=== PATIENT | female | born 1950 | race Caucasian/White ===

== ENCOUNTER 2024-05-28 15:53 | Emergency (ER) | payer OTHER ==
[~2024-05-28] VITALS: Ht 167.6 cm; Wt 81.8 kg
--- NOTE | 2024-05-28 16:03 | ED.PDOC ---
Altered Mental Status HPI Comments 73 y.o female with PMH of AFIB, presents to the ED via EMS for a chief complaint of dizziness. 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 Patient assisted herself to a chair and placed her head to her knees. Patient's friend called 911. EMS reports on scene, patient was hypotensive to the 80's systolic and bradycardic in the low 40s. Patient was placed supine on a gurney, imroving her BP to 124/80's, however she remained bradycardiac around 53 HR. Patient received IV fluids and patient states she is no longer feeling dizzy but is complaining of a mild discomfort to the posterior aspect of her neck. No chest pain, SOB, vision changes, headache, focal weakness or vomiting reported. Time Seen by MD: 15:51 Reviewed Notes: Nurses Notes, Gasoline Pump Installer Notes, Medications, Allergies Allergies: Coded Allergies: Codeine (Verified Allergy, Unknown, 05/28/24) Information Source: Patient, Emergency Med Personnel Mode of Arrival: EMS Severity: Moderate Timing: Hours Duration: Since onset Prehospital treatment: 12 Lead EKG, Softball Coach, IVF Associated Signs and Symptoms: Other Past Medical History PAST MEDICAL HISTORY: AFIB, HTN Surgical History: Denies all surgeries CAREER RESOURCE TECHNICIAN History: No Pertinent CAREER RESOURCE TECHNICIAN History Family History Family History: Reviewed,noncontributory to illness Social History Smoker: Non-Smoker Alcohol: Denies ETOH Use Drugs: Denies Drug Use Lives In: Home Constitutional: denies: chills, diaphoresis, fatigue, fever, malaise, sweats, weakness, others EENTM: denies: blurred vision, double vision, ear bleeding, ear discharge, ear drainage, ear pain, ear ringing, eye pain, eye redness, hearing loss, mouth pain, mouth swelling, nasal discharge, nose bleeding, nose congestion, nose pain, photophobia, tearing, throat pain, throat swelling, voice changes, others Respiratory: denies: cough, hemoptysis, orthopnea, SOB at rest, shortness of breath, SOB with excertion, stridor, wheezing, others Cardiovascular: reports: lightheadedness; denies: chest pain, dizzy spells, diaphoresis, Dyspnea on exertion, edema, irregular heart beat, left arm pain, palpitations, PND, syncope, others Gastrointestinal: denies: abdomen distended, abdominal pain, blood streaked bowels, constipated, diarrhea, dysphagia, difficulty swallowing, hematemesis, melena, nausea, poor appetite, poor fluid intake, rectal bleeding, rectal pain, vomiting, others Genitourinary: denies: abnormal vagina bleeding, burning, dyspareunia, dysuria, flank pain, frequency, hematuria, incontinence, pain, , vagina discharge, urgency, others Neurological: reports: dizziness; denies: fainting, headache, left sided numb ness, left sided weakness, numbness, paresthesia, pre-existing deficit, right sided numbness, right sided weakness, seizure, speech problems, tingling, tremors, weakness, others Musculoskeletal: reports: neck pain; denies: back pain, gout, joint pain, joint swelling, muscle pain, muscle stiffness, others Integumetry: denies: bruises, change in color, change in hair/nails, dryness, laceration, lesions, lumps, rash, wounds, others Allergic/Immunocompromised: denies: Difficulty Healing, Frequent Infections, Hives, Itching, others Hematologic/Lymphatic: denies: anemia, blood clots, easy bleeding, easy bruising, swollen glands, others Endocrine: denies: excessive hunger, excessive sweating, excessive thirst, excessive urination, flushing, intolerance to cold, intolerance to heat, unexplained weight gain, unexplained weight loss, others Psychiatric: denies: anxiety, bipolar disorder, depression, hopeless, panic disorder, schizophrenia, sleepless, suicidal, others All Other Systems: Reviewed and Negative Physical Exam General Appearance: No Apparent Distress HEENT: Normal ENT Inspection Neck: Full Range of Motion, Non-Tender, Normal Inspection, Supple Respiratory: Lungs Clear, No Accessory Muscle Use, No Respiratory Distress, Normal Breath Sounds Cardiovascular: Bradycardia, No Edema, No JVD Breast Exam: Deferred Gastrointestinal: Non Tender, Soft Genitalia: Deferred Pelvic: Deferred Rectal: Deferred Extremities: Normal inspection, Normal range of motion, Non-tender, No pedal edema Neurologic: Alert, No Motor Deficits, Normal Affect, Normal Mood, No Sensory Deficits Cerebellar Function: NOT DONE Reflexes: NOT DONE Skin: Dry, Normal Color, Warm Lymphatic: NOT DONE EKG EKG : Comments EKG sinus bradycardia, rate 55, normal ND and QRS intervals, QTC 499, left axis deviation, old inferior infarct, nonspecific T change. Was a procedure done? Was a procedure done?: No Differential Diagnosis (ALOC) Differential Diagnosis: Dehydration, Hypoglycemia, Encephalopathy, Closed Head Injury, CVA, Mass Lesion, SAH, Heart Failure, Other (TIA) Other Differential Diagnosis Bradycardia, orthostasis, hypotension X-Ray, Labs, Meds, VS Vital Signs Date Time Temp Pulse Resp B/P (MAP) Pulse Ox O2 Delivery O2 Flow Rate FiO2 05/28/24 17:08 98.2 58 16 140/62 (88) 96 98.2 05/28/24 17:08 58 16 96 Room Air* 0 21 05/28/24 17:06 75 05/28/24 16:13 97.5 58 18 129/54 (79) 98 05/28/24 15:58 55 Lab Test 05/28/24 16:54 05/28/24 16:09 Range/Units Troponin I High Sensitivity 4 3 L </=34 ng/L White Blood Count 5.8 4.4-10.8 10^3/uL Red Blood Count 4.29 4.0-5.20 10^6/uL Hemoglobin 13.3 12.2-16.2 g/dL Hematocrit 38.5 36.0-46.0 % Mean Corpuscular Volume 89.7 80.0-100.0 fL Mean Corpuscular Hemoglobin 31.0 28.0-32.0 pg Mean Corpuscular Hemoglobin Concent 34.6 32.0-36.0 g/dL Red Cell Distribution Width 12.9 11.8-14.3 % Platelet Count 223 140-450 10^3/uL Mean Platelet Volume 8.8 6.9-10.8 fL Neutrophils (%) (Auto) 60.1 37.0-80.0 % Lymphocytes (%) (Auto) 31.2 10.0-50.0 % Monocytes (%) (Auto) 6.9 0.0-12.0 % Eosinophils (%) (Auto) 1.0 0.0-7.0 % Basophils (%) (Auto) 0.8 0.0-2.0 % Neutrophils # (Auto) 3.5 1.6-8.6 10 ^3/uL Lymphocytes # (Auto) 1.8 0.4-5.4 10 ^3/uL Monocytes # (Auto) 0.4 0-1.3 10 ^3/uL Eosinophils # (Auto) 0.1 0-0.8 10 ^3/uL Basophils # (Auto) 0 0-0.2 10 ^3/uL Nucleated Red Blood Cells 0.1 % Sodium Level 145 136-145 mmol/L Potassium Level 3.9 3.5-5.1 mmol/L Chloride Level 112 H 98-107 mmol/L Carbon Dioxide Level 23 20-31 mmol/L Anion Gap 10 5-15 Blood Urea Nitrogen 18 9-23 mg/dL Creatinine 1.40 H 0.550-1.02 mg/dL Glomerular Filtration Rate Calc 39 >90 mL/min BUN/Creatinine Ratio 12.9 10.0-20.0 Serum Glucose 134 H 74-106 mg/dL Calcium Level 9.4 8.7-10.4 mg/dL B-Type Natriuretic Peptide 41.64 0-100 pg/mL PROCEDURE(s): HWOCT - HEAD WITHOUT CONTRAST REASON: NEAR SYNCOPE ORDER NUMBER(s): [id number], ACCESSION NUMBER(s): [id number] EXAM: CT HEAD WITHOUT CONTRAST INDICATION: NEAR SYNCOPE TECHNIQUE: CT of the head without intravenous contrast. Radiation Dose Information: CT Dose: CTDI volume is 50.39 mGy. Dose-length product is 908.71 mGy*cm The dose indicators for CT are the volume Computed Tomography (CT) Dose Index (CTDIvol) and the Dose Length Product (DLP), and are measured in units of mGy and mGy-cm, respectively. These indicators are not patient dose, but values generated from the CT scanner acquisition factors. The report includes radiation exposure data for exposures received during this examination. COMPARISON: None FINDINGS: There is no evidence of acute intracranial hemorrhage, extra-axial collection, mass effect, midline shift, herniation or hydrocephalus. Multiple small old lacunar infarcts left frontal lobe . The ventricles, sulci and cisterns are age appropriate. The henriquez-white differentiation is intact. Patchy periventricular and subcortical white matter hypoattenuation is nonspecific but may be related to small vessel ischemic disease. The visualized paranasal sinuses and mastoid air cells are clear. The surrounding soft tissues and osseous structures are unremarkable. IMPRESSION: 1. No acute intracranial hemorrhage. 2. Small focal lacunar infarcts left frontal lobe in the periventricular area. 3. No areas of territorial ischemia. EDURE(s): CXRP - CHEST PORTABLE REASON: NEAR SYNCOPE; BRADYCARDIA ORDER NUMBER(s): [id number], ACCESSION NUMBER(s): [id number] CHEST RADIOGRAPH Indication:NEAR SYNCOPE; BRADYCARDIA Technique: Single frontal view of the chest was obtained COMPARISON: None FINDINGS: Lines and Tubes: None Lungs: Clear Pleura: No effusion. No pneumothorax. Cardiomediastinal contours: Unremarkable Bones: Unremarkable IMPRESSION: No acute disease. X-Ray, Labs, Meds, VS Comment 73-year-old female with a history of hypertension and AFib presenting after a n ear syncopal episode, with a finding of initial hypotension and bradycardia Vitals remarkable for heart rate 55 Exam remarkable for bradycardia CBC, basic metabolic panel, BNP and 1st troponin unremarkable for any abnormality of acute significance EKG sinus bradycardia, rate 55, normal ND and QRS intervals, QTC 499, left axis deviation, old inferior infarct, nonspecific T change. Chest x-ray unremarkable Head CT: IMPRESSION: 1. No acute intracranial hemorrhage. 2. Small focal lacunar infarcts left frontal lobe in the periventricular area. 3. No areas of territorial ischemia. Patient was not feeling lightheaded/presyncopal in the ED and was not in any discomfort, so was placed on continuous cardiac and pulse oximetry monitoring Plan is to admit/transfer the patient for observation and Cardiology/neurology evaluation. Case discussed with Dr. Mg at [facility], who will arrange for the patient to be transferred to [place]. Patient is currently stable for transfer. Authorization [id number] Time of 1ST Reevaluation: 15:56 Reevaluation 1ST: Unchanged Time of 2ND Reevaluation: 17:11 Reevaluation 2ND: Improved Patient Education/Counseling: Diagnosis, Treatment, Prognosis Family Education/Counseling: No Family Present Departure 1 Departure Time of Disposition: 17:11 Impression: Primary Impression: Pre-syncope Additional Impression: Symptomatic bradycardia Disposition: 09 ADMITTED INPATIENT Admit to: Tele Condition: Guarded Critical Care Note Critical Care Time?: No Stability Stability form required: No I personally scribed for RONALD BILLS MD ([facility] on 05/28/24 at 16:03. Electronically submitted by Cristin Cagle ([facility]). I personally scribed for RONALD BILLS MD ([facility]) on 05/28/24 at 18:56. Electronically submitted by Cristin Cagle ([facility]). RONALD BILLS MD May 28, 2024 16:03
[2024-05-28 16:23] LABS: Basophils # (auto) 0 10 ^3/uL (0-0.2); Basophils % (auto) 0.8 % (0.0-2.0); Eosinophils # (auto) 0.1 10 ^3/uL (0-0.8); Hematocrit 38.5 % (36.0-46.0); Hemoglobin 13.3 g/dL (12.2-16.2); Lymphocytes # (auto) 1.8 10 ^3/uL (0.4-5.4); Lymphocytes % (auto) 31.2 % (10.0-50.0); Mean Corpuscular Hgb Conc. 34.6 g/dL (32.0-36.0); Mean Corpuscular Volume 89.7 fL (80.0-100.0); Monocytes # (auto) 0.4 10 ^3/uL (0-1.3); Monocytes % (auto) 6.9 % (0.0-12.0); Neutrophils # (auto) 3.5 10 ^3/uL (1.6-8.6); Neutrophils % (auto) 60.1 % (37.0-80.0); Nucleated Red Blood Cells % 0.1 %; Platelet Count (auto) 223 10^3/uL (140-450); Red Blood Cells 4.29 10^6/uL (4.0-5.20); Red Cell Distribution Width 12.9 % (11.8-14.3); White Blood Cell 5.8 10^3/uL (4.4-10.8)
[2024-05-28 16:33] LABS: Chloride 112 mmol/L (98-107); Potassium 3.9 mmol/L (3.5-5.1); Sodium 145 mmol/L (136-145)
[2024-05-28 16:34] LABS: Anion Gap 10 (5-15); Calcium 9.4 mg/dL (8.7-10.4); Carbon Dioxide 23 mmol/L (20-31)
--- NOTE | 2024-05-28 16:38 | DVH ---
CHEST RADIOGRAPH Indication:NEAR SYNCOPE; BRADYCARDIA Technique: Single frontal view of the chest was obtained COMPARISON: None FINDINGS: Lines and Tubes: None Lungs: Clear Pleura: No effusion. No pneumothorax. Cardiomediastinal contours: Unremarkable Bones: Unremarkable IMPRESSION: No acute disease.
[2024-05-28 16:39] LABS: BUN/Creatinine Ratio 12.9 (10.0-20.0); Blood Urea Nitrogen 18 mg/dL (9-23); Glucose 134 mg/dL (74-106)
--- NOTE | 2024-05-28 16:44 | DVH ---
EXAM: CT HEAD WITHOUT CONTRAST INDICATION: NEAR SYNCOPE TECHNIQUE: CT of the head without intravenous contrast. Radiation Dose Information: CT Dose: CTDI volume is 50.39 mGy. Dose-length product is 908.71 mGy*cm The dose indicators for CT are the volume Computed Tomography (CT) Dose Index (CTDIvol) and the Dose Length Product (DLP), and are measured in units of mGy and mGy-cm, respectively. These indicators are not patient dose, but values generated from the CT scanner acquisition factors. The report includes radiation exposure data for exposures received during this examination. COMPARISON: None FINDINGS: There is no evidence of acute intracranial hemorrhage, extra-axial collection, mass effect, midline s hift, herniation or hydrocephalus. Multiple small old lacunar infarcts left frontal lobe . The ventricles, sulci and cisterns are age appropriate. The henriquez-white differentiation is intact. Patchy periventricular and subcortical white matter hypoattenuation is nonspecific but may be related to small vessel ischemic disease. The visualized paranasal sinuses and mastoid air cells are clear. The surrounding soft tissues and osseous structures are unremarkable. IMPRESSION: 1. No acute intracranial hemorrhage. 2. Small focal lacunar infarcts left frontal lobe in the periventricular area. 3. No areas of territorial ischemia.
[2024-05-28 17:08] VITALS: PULSE 58; RESP 16; O2SAT 96
[2024-05-28 19:30] VITALS: PULSE 74; RESP 15; O2SAT 98
[2024-05-28 23:07] VITALS: BP 154/74; PULSE 69; RESP 15; TEMP 98; O2SAT 97
--- NOTE | 2024-05-31 10:33 | ECG ---
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
--- NOTE | 2024-05-31 10:33 | ECG ---
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
== END 2024-05-28 18:12 | disposition short-term general hospital (02) ==
LOC: EDBD 15:53 → ER 15:58
DX: R55 Syncope and collapse (principal); R00.1 Bradycardia, unspecified; Z88.0 Allergy status to penicillin
CPT/HCPCS: 36415; 70450; 71045; 80048; 83880; 84484; 85025; 93005

== ENCOUNTER 2025-02-02 18:31 | Emergency (ER) | payer OTHER ==
[~2025-02-02] VITALS: Ht 157.5 cm; Wt 68.1 kg
[2025-02-02 18:31] VITALS: BP 187/90; PULSE 82; RESP 20; TEMP 98.4; O2SAT 99
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
== END 2025-02-02 19:24 | disposition home or self-care (01) ==
LOC: EDBD 18:31 → ER 18:34
DX: I10 Essential (primary) hypertension (principal); I48.91 Unspecified atrial fibrillation; Z88.5 Allergy status to narcotic agent; V89.2XXA Person injured in unspecified motor-vehicle accident, traffic, initial encounter; Y93.I9 Activity, other involving external motion; Y92.488 Other paved roadways as the place of occurrence of the external cause; Y99.8 Other external cause status